=== PATIENT | male | born 1980 | race Caucasian/White ===

== ENCOUNTER 2017-06-21 23:05 | Emergency (ER) | payer OTHER ==
[2017-06-21] MEDS ORDERED: Acetaminophen/HYDROcodone 325-5 MG Tab PO ONE (23:51)
[2017-06-21] MEDS ORDERED: Ketorolac 60 MG/2 ML SDV IM ONE (23:52)
--- NOTE | 2017-06-21 23:53 | EDM.PDOC ---
ED HPI GENERAL MEDICAL PROBLEM - General Chief Complaint: Upper Extremity Injury/Pain Stated Complaint: LACERATION LT MIDDLE/INDEX FINGER Time Seen by Provider: 06/21/17 23:49 Source of Information: Reports: Patient History Limitations: Reports: No Limitations - History of Present Illness INITIAL COMMENTS - FREE TEXT/NARRATIVE: HISTORY AND PHYSICAL: History of present illness: [37-year-old male now presents to the emergency department after sustaining injury to the tips of his left index and long fingers.]. Patient was at work resting his hand on something when something hydraulic moved something that crushed and amputated the tips of his 2 fingers. No other injury or complaint. Tetanus was up-to-date. He has no bone or bleeding problems no anticoagulants. Small amount of blood loss at the scene. Patient was wearing a glove when it happened so there is no gross contamination of his wounds. Patient is asking to have the remainder of both digits amputated back to the joint. I told him this was not clinically indicated but he is very insistent stating that he didn't "want to deal with a prolonged recovery time. "Patient also demanding of drug screen before he is given any narcotic pain medication. He states he wants to prove that he has not been on drugs. Review of systems: As per history of present illness and below otherwise all systems reviewed and negative. Past medical history: As per history of present illness and as reviewed below otherwise noncontributory. Surgical history: As per history of present illness and as reviewed below otherwise noncontributory. Social history: No reported history of drug or alcohol abuse. Family history: As per history of present illness and as reviewed below otherwise noncontributory. Physical exam: Left index finger with avulsion to the distal tip. Distal aspect of distal phalange slightly visible in the wound. Left long finger with similar injury. Distal aspect of both fingers very tender. Normal range of motion but limited by pain HEENT: Normocephalic, atraumatic, pupils normal and symmetrical, supple neck, no meningismus, normal color Lungs: Normal and symmetrical chest wall excursion bilateral with no tachypnea or increased work of breathing, grossly normal chest exam Heart: No tachycardia in triage Abdomen: Normal-appearing, nondistended, no visible mass or asymmetry Pelvis: Normal-appearing Genitourinary: Deferred Rectal exam: Deferred Extremities: Atraumatic, normal use and range of motion, no visible evidence of gross neurovascular compromise Neuro: Awake, alert, oriented. Normal and appropriate mental status. Cranial nerves grossly unremarkable. Motor function normal. Nonfocal neurologic exam. Diagnostics: [X-ray with fracture to the distal aspect of the left long finger distal phalange as well as soft tissue avulsion. No visible fracture of the distal phalange of left index finger.] Therapeutics: [Analgesia given. Tetanus up-to-date. Prophylactic antibiotic treatment initiated.] Impression: [] Plan: [Patient with avulsions. No further workup or treatment indicated at this time. Discussed with patient at length how amputation at the DIP is not clinically indicated, appropriate, or consistent with standard of care. He is aware to follow-up with [facility] surgery/hand surgery Dr. Casandra Hu for reevaluation and further treatment including surgical revision if this becomes indicated. He agrees with outpatient follow-up and strict return precautions given Definitive disposition and diagnosis as appropriate pending reevaluation and review of above. Left 2-Index finger Pain Score (Numeric/FACES): 2 Left 3-Middle finger Pain Score (Numeric/FACES): 2 - Related Data Allergies Allergy/AdvReac Type Severity Reaction Status Date / Time No Known Allergies Allergy Verified 06/21/17 23:19 Home Meds: Home Meds . [No Known Home Meds] 06/21/17 [History] Past Medical History Cardiovascular History: Reports: Hypertension Musculoskeletal History: Reports: None - Infectious Disease History Infectious Disease History: Reports: MRSA - Past Surgical History Cardiovascular Surgical History: Reports: None Other Musculoskeletal Surgeries/Procedures:: right toe amputated Social & Family History - Family History Family Medical History: Noncontributory - Tobacco Use Smoking Status *Q: Current Every Day Smoker Years of Tobacco use: 25 Packs/Tins Daily: 2 - Caffeine Use Caffeine Use: Reports: Energy Drinks Caffeine Use Comment: "on occasion" - Recreational Drug Use Recreational Drug Use: No Review of Systems - Review of Systems Review Of Systems: See Below (History of present illness) ED EXAM, GENERAL - Physical Exam Exam: See Below (History of present illness) Course - Vital Signs Last Recorded V/S: Last Vital Signs Temp 35.7 C 06/21/17 23:15 Pulse 78 06/22/17 01:34 Resp 18 06/22/17 01:34 BP 125/72 06/22/17 01:34 Pulse Ox 99 06/22/17 01:34 - Orders/Labs/Meds Orders: Active Orders 24 hr Category Date Time Status Hand 2V Lt [CR] Stat Exams 06/21/17 23:51 Taken Labs: Laboratory Tests 06/21/17 Range/Units 23:30 Urine Opiates Screen NEGATIVE (NEGATIVE) Ur Oxycodone Screen NEGATIVE (NEGATIVE) Urine Methadone Screen NEGATIVE (NEGATIVE) Ur Barbiturates Screen NEGATIVE (NEGATIVE) Ur Phencyclidine Scrn NEGATIVE (NEGATIVE) Ur Amphetamine Screen NEGATIVE (NEGATIVE) U Methamphetamines Scrn NEGATIVE (NEGATIVE) U Benzodiazepines Scrn NEGATIVE (NEGATIVE) U Cocaine Metab Screen NEGATIVE (NEGATIVE) U Marijuana (THC) Screen NEGATIVE (NEGATIVE) Meds: Medications Discontinued Medications Generic Name Dose Route Start Last Admin Trade Name Freq PRN Reason Stop Dose Admin Hydrocodone Bitart/Acetaminophen 1 tab 06/21/17 23:51 06/22/17 00:05 [place] 325-5 Mg PO 06/21/17 23:52 1 tab ONETIME ONE Administration Cefazolin Sodium 1 gm 06/22/17 01:01 06/22/17 01:16 Ancef IM 06/22/17 01:02 1 gm ONETIME ONE Administration Ketorolac Tromethamine 60 mg 06/21/17 23:52 06/22/17 00:05 Toradol IM 06/21/17 23:53 60 mg ONETIME ONE Administration Sterile Water 2.5 ml 06/22/17 01:08 06/22/17 01:16 Sterile Water For Injection INJECT 06/22/17 01:09 2.5 ml ONETIME ONE Administration Departure - Departure Time of Disposition: 00:40 Disposition: Home, Self-Care 01 Condition: Good Clinical Impression: Avulsion of fingertip, Closed fracture of tuft of distal phalanx of finger - Discharge Information Instructions: Finger Fracture, [id number], Crush Injury, Fingers or Toes, [id number] Referrals: PCP,None [Primary Care Provider] - Forms: ED Department Discharge Additional Instructions: You have avulsions of the tip of your left index finger and your left finger. An avulsion is when tissue is torn off and from the body. It appears as if you may have a chip of the bone at the end of your middle finger. As you described your tetanus is up-to-date. Verify this with your primary care doctor. We've given you antibiotics here as well as with a prescription to prevent infection. Keep wounds covered while they're healing. Take ibuprofen 800 mg every 6 hours as well as [place] every 6 hours as needed for uncontrolled pain. Follow-up with our hand surgeon Dr. Casandra Vizcarra in several days for reevaluation and to discuss continued care including the possibility of surgical revision if for some reason this becomes indicated. You may use the hand as tolerated however avoid disrupting your healing wounds. Return for signs of infection. - My Orders Last 24 Hours: My Active Orders 06/21/17 23:51 Hand 2V Lt [CR] Stat - Assessment/Plan Last 24 Hours: My Active Orders 06/21/17 23:51 Hand 2V Lt [CR] Stat
[2017-06-22] MEDS ORDERED: ceFAZolin 1 GM Vial IM ONE (01:01)
[2017-06-22] MEDS ORDERED: Water For Injection, Sterile 20 ML SDV INJECT ONE (01:08)
[2017-06-22 01:39] VITALS: BP 125/72
--- NOTE | 2017-06-22 16:55 | CR ---
EXAM DATE: 06/21/17 PATIENT'S AGE: 37 Patient: YO BARAJAS Facility: [place], [place] Site . Site : 1980 Study: XRay Extremity Left [id number] 12:10:33 AM Ordering Physician: Georges Cash Final Report: INDICATION: Finger injury TECHNIQUE: Finger radiographs 2 views left. COMPARISON: None FINDINGS: Bones: Alignment is normal. Partial amputation of the frontal debi of the 2nd and 3rd digits are present. Joint spaces: The metacarpophalangeal and interphalangeal joints are normal in appearance. Soft tissues: Amputation of the distal soft tissues of the 2nd and 3rd digits are noted. No radiopaque foreign bodies are noted. IMPRESSION: 1. Partial amputation of the frontal debi of the 2nd and 3rd digits are present. Dictated by Keith Rich MD @ 06/22/2017 12:22:55 AM Dictated by: Keith Rich MD @ 06/22/2017 00:22:58 (Electronic Signature) Report Signed by Proxy. NUHA
== END 2017-06-22 01:35 | disposition home or self-care (01) ==
LOC: MW.ED 23:05
DX: S62.633A Displaced fracture of distal phalanx of left middle finger, initial encounter for closed fracture (principal); S61.201A Unspecified open wound of left index finger without damage to nail, initial encounter; I10 Essential (primary) hypertension; F17.210 Nicotine dependence, cigarettes, uncomplicated; Z23 Encounter for immunization; W23.0XXA Caught, crushed, jammed, or pinched between moving objects, initial encounter; Y99.0 Civilian activity done for income or pay; Z89.421 Acquired absence of other right toe(s)
CPT/HCPCS: 73120; 80305; 90471; 96372; 99283; A9270; J0690; J1885

== ENCOUNTER 2022-08-03 17:13 | Observation (INO) | payer OTHER ==
[2022-08-03] MEDS ORDERED: Sodium Chloride 0.9% 2.5 ML Syringe FLUSH PRN (17:37)
[2022-08-03] MEDS ORDERED: Sodium Chloride 0.9% 10 ML Syringe FLUSH PRN (17:37)
[2022-08-03] MEDS ORDERED: Sodium Chloride 0.9% 1,000 ML IV ONE (17:55)
[2022-08-03 18:25] LABS: CARBON DIOXIDE,CO2 23.9 mmol/L (21.0-32.0); POTASSIUM,K 3.3 mmol/L (3.5-5.1)
[2022-08-03 18:26] LABS: CORONAVIRUS COVID-19 NAA NEGATIVE (NEGATIVE); INFLUENZA A NAA NEGATIVE (NEGATIVE); INFLUENZA B NAA NEGATIVE (NEGATIVE)
[2022-08-03] MEDS ORDERED: Iopamidol 755 MG/ML 500 ML Multipack Bottle IVPUSH STA (19:06)
[2022-08-03] MEDS ORDERED: Enoxaparin 100 MG/1 ML Syringe SUBCUT ONE (20:04)
[2022-08-03] MEDS ORDERED: Sodium Chloride 0.9% 500 ML IV SCH (20:15)
[2022-08-03] MEDS ORDERED: Albuterol/Ipratropium 3.0-0.5 MG/3 ML Neb Soln NEB PRN (21:43)
[2022-08-03] MEDS ORDERED: Ondansetron 4 MG/2 ML SDV IVPUSH PRN (21:44)
[2022-08-03] MEDS ORDERED: Acetaminophen 325 MG Tab PO PRN (21:49)
[2022-08-03] MEDS ORDERED: Pantoprazole 40 MG in Sodium Chloride 0.9% 10 ML IVPUSH SCH (22:00)
[2022-08-03] MEDS ORDERED: Potassium Chloride 20 MEQ Tab.ER PO ONE (23:00)
[2022-08-04 01:09] LABS: CARBON DIOXIDE,CO2 23.2 mmol/L (21.0-32.0); POTASSIUM,K 3.8 mmol/L (3.5-5.1)
[2022-08-04 06:48] LABS: CARBON DIOXIDE,CO2 22.9 mmol/L (21.0-32.0)
[2022-08-04 11:26] VITALS: BP 111/74; PULSE 82
== END 2022-08-04 17:55 | disposition home or self-care (01) ==
LOC: MW.ED 17:13 → MW.MS 20:05
PROVIDERS: ADMIT Student in an Organized Health Care Education/Training Program; ATTEND Student in an Organized Health Care Education/Training Program
DX: I31.39 Other pericardial effusion (noninflammatory) (principal); I10 Essential (primary) hypertension; I51.7 Cardiomegaly; R94.31 Abnormal electrocardiogram [ECG] [EKG]; Z98.890 Other specified postprocedural states; Z79.82 Long term (current) use of aspirin; Z79.899 Other long term (current) drug therapy; Z20.822 Contact with and (suspected) exposure to COVID-19; Z87.891 Personal history of nicotine dependence
CPT/HCPCS: 0240U; 36415; 71275; 80053; 80061; 81003; 82728; 83550; 83605; 83735; 83880; 84100; 84443; 84484; 85025; 85045; 85379; 85652; 86140; 87040; 93005; 93306; A9270; C9113; J1650; J3490; J7030; J7040; Q9967